=== PATIENT | female | born 1955 | race Caucasian/White ===

== ENCOUNTER 2017-10-31 15:16 | Emergency (ER) | payer OTHER ==
[2017-10-31 15:31] VITALS: BMI 26.1
[2017-10-31 16:13] LABS: BASO # 0.1 K/uL (0.0-0.2); EOS # 0.2 K/uL (0.0-0.7); EOS % 2.5 % (0.0-4.0); LYMPH # 2.5 K/uL (1.0-4.3); LYMPH % 34.5 % (20.0-40.0); MEAN CELL VOLUME 81.8 fL (81.0-99.0); MEAN CORPUSCULAR HEMOGLOBIN 28.3 pg (27.0-31.0); MEAN CORPUSCULAR HGB CONC 34.6 g/dL (33.0-37.0); MEAN PLATELET VOLUME 7.1 fL (7.2-11.7); MONO # 0.4 K/uL (0.0-0.8); MONO % 5.9 % (0.0-10.0); NEUT % 56.1 % (50.0-75.0); NRBC % 0.1 % (0.0-2.0); RBC 4.6 Mil/uL (3.80-5.20); RED CELL DISTRIBUTION WIDTH 15.2 % (11.5-14.5); WHITE BLOOD COUNT 7.1 K/uL (4.8-10.8)
[2017-10-31 16:24] LABS: ALB/GLOB RATIO 1.2 (1.0-2.1); ALBUMIN 4.4 g/dL (3.5-5.0); ALT/SGPT 21 U/L (9-52); AST/SGOT 18 U/L (14-36); BLOOD UREA NITROGEN 10 mg/dL (7-17); CALCIUM 9.3 mg/dl (8.6-10.4); GFR NON-AFRICAN AMERICAN > 60
--- NOTE | 2017-10-31 17:10 | C.PDOC ---
History Of Present Illness <Allison Gray Eligio - Last Filed: 10/31/17 18:33> <Fidelia Locke - Last Filed: 10/31/17 22:34> 62 y/o female brought to ER by BLS for evaluation of bizarre behavior. Patient was found by a tool crib clerk who came to the home. According to tool crib clerk, the patient was incoherent and acting strange. Denies having suicidal ideation, homicidal ideation, and active physical complaints. (Allison Gray) History Per: Patient History/Exam Limitations: no limitations Onset/Duration Of Symptoms: Days Current Symptoms Are (Timing): Still Present Severity: Moderate <MarinaAllison Eligio - Last Filed: 10/31/17 18:33> <Fidelia Locke - Last Filed: 10/31/17 22:34> Time Seen by Provider: 10/31/17 15:30 Chief Complaint (Nursing): Psychiatric Evaluation Past Medical History Reviewed: Historical Data, Nursing Documentation, Vital Signs - Medical History PMH: Schizophrenia Surgical History: No Surg Hx Family History: States: No Known Family Hx - Social History Hx Alcohol Use: No Hx Substance Use: No - Immunization History Hx Tetanus Toxoid Vaccination: No Hx Influenza Vaccination: No <Tiffany Graybeth Eligio - Last Filed: 10/31/17 18:33> Vital Signs: Last Vital Signs Temp 98.2 F 10/31/17 18:58 Pulse 83 10/31/17 18:58 Resp 16 10/31/17 18:58 BP 125/67 10/31/17 18:58 Pulse Ox 97 10/31/17 18:58 Review Of Systems Except As Marked, All Systems Reviewed And Found Negative. Constitutional: Negative for: Fever, Chills Psych: Positive for: Other (bizarre behavior) <MarinaAllison A - Last Filed: 10/31/17 18:33> Physical Exam - Physical Exam Appears: Non-toxic, No Acute Distress, Other (patient speaking,not making much sense) Skin: Normal Color, Warm, Dry Head: Atraumatic, Normacephalic Eye(s): bilateral: Normal Inspection Nose: Normal Oral Mucosa: Moist Neck: Supple Chest: Symmetrical Cardiovascular: Rhythm Regular Respiratory: Normal Breath Sounds, No Rales, No Rhonchi, No Wheezing Neurological/Psych: Oriented x3, Other (talking, not making much sense) <MarinaAllison A - Last Filed: 10/31/17 18:33> ED Course And Treatment - Laboratory Results Result Diagrams: 10/31/17 16:07 10/31/17 16:07 Lab Interpretation: No Acute Changes O2 Sat by Pulse Oximetry: 96 (RA) Pulse Ox Interpretation: Normal Progress Note: Case discussed and patient evaluated by warehouse assembly worker. Patient in no distress. Patient to be screened by [facility]. Cleared for Crisis Exaluation Reassessment Condition: Unchanged <Allison Gray - Last Filed: 10/31/17 18:33> - Laboratory Results Result Diagrams: 10/31/17 16:07 10/31/17 16:07 Progress Note: Patient is medically cleared for psychiatric admission/ psychiatric transfer. 9:30 [facility] screener requesting repeat UA. 10:30 Patient was seen by [facility] screener and cleared for discharge. [facility]CT will evaluate patient tomorrow. Reevaluation Time: 22:27 Reassessment Condition: Unchanged <Fidelia Locke - Last Filed: 10/31/17 22:34> Medical Decision Making: Plan: --Labs --UA (Lila Grayth Eligio) Disposition - Disposition Disposition Time: 19:00 - POA Present On Arrival: None <Allison Gray - Last Filed: 10/31/17 18:33> Counseled Patient/Family Regarding: Studies Performed, Diagnosis, Need For Followup, Rx Given - Disposition Disposition Time: 22:31 <Fidelia Locke - Last Filed: 10/31/17 22:34> - Disposition Disposition: HOME/ ROUTINE Condition: STABLE Additional Instructions: Follow up with [facility] and [facility] tomorrow. Prescriptions: Nitrofurantoin Macrocrystals [Macrobid] 1 cap PO BID #14 cap Instructions: Schizophrenia, Urinary Tract Infections in Adults Forms: [employer] (Japanese) - Clinical Impression Clinical Impression: Schizophrenia, UTI (urinary tract infection) - PA / OIL FIRE SPECIALIST / Resident Statement MD/DO has reviewed & agrees with the documentation as recorded. - Scribe Statement The provider has reviewed the documentation as recorded by the Scribe <Allison Gray - Last Filed: 10/31/17 18:33> <Fidelia Locke - Last Filed: 10/31/17 22:34> - Scribe Statement Eugenio Barone Provider Attestation All medical record entries made by the Scribe were at my direction and personally dictated by me. I have reviewed the chart and agree that the record accurately reflects my personal performance of the history, physical exam, medical decision making, and the department course for this patient. I have also personally directed, reviewed, and agree with the discharge instructions and disposition. (Allison Gray) Physician Patient Turnover Patient Signed Over To: Fidelia Locke Handoff Comments: pending Psych Sreening <Allison Gray - Last Filed: 10/31/17 18:33>
[2017-10-31 17:36] LABS: SQUAMOUS EPITHIAL < 1 /hpf (0-5); URINE BACTERIA MOD (<OCC); URINE BILIRUBIN NEGATIVE (NEGATIVE); URINE BLOOD 1+ (NEGATIVE); URINE CLARITY Hazy (Clear); URINE COLOR Yellow (YELLOW); URINE GLUCOSE (UA) NORMAL (Normal); URINE LEUKOCYTE ESTERASE 3+ Leu/uL (Negative); URINE PROTEIN NEGATIVE (NEGATIVE); URINE UROBILINOGEN NORMAL mg/dL (0.2-1.0)
[2017-10-31 17:52] LABS: BARBITURATES, UR NEGATIVE (NEGATIVE); BENZODIAZEPINES, UR NEGATIVE (NEGATIVE); OPIATES, UR NEGATIVE (NEGATIVE); PHENCYCLIDINE, UR NEGATIVE (NEGATIVE)
[2017-10-31 18:58] VITALS: TEMP 98.2
[2017-10-31 23:01] VITALS: BP 135/75; PULSE 78; RESP 14; O2SAT 100
== END 2017-10-31 23:00 | disposition home or self-care (01) ==
LOC: C.ER 15:16
DX: F20.9 Schizophrenia, unspecified (principal); N39.0 Urinary tract infection, site not specified

== ENCOUNTER 2017-11-02 14:03 | Inpatient (IN) | payer OTHER ==
[2017-11-02 14:04] VITALS: BMI 26.1
--- NOTE | 2017-11-02 14:39 | RAD ---
HISTORY: r/o infiltrate COMPARISON: Chest x-ray performed 07/12/15 TECHNIQUE: Chest, one view. FINDINGS: Examination limited by habitus and hypoinflation. LUNGS: Mild pulmonary venous congestion. Linear atelectasis, left mid lung zone. Please note that chest x-ray has limited sensitivity for the detection of pulmonary masses. PLEURA: No significant pleural effusion identified. No definite pneumothorax . CARDIOVASCULAR: Cardiomegaly. OSSEOUS STRUCTURES: Degenerative changes. VISUALIZED UPPER ABDOMEN: Elevation of the right hemidiaphragm. OTHER FINDINGS: None. IMPRESSION: Mild pulmonary venous congestion. Linear atelectasis, left mid lung zone. Cardiomegaly.
[2017-11-02 14:57] LABS: BASO % 0.6 % (0.0-2.0); EOS # 0.1 K/uL (0.0-0.7); HEMOGLOBIN 13.1 g/dL (11.0-16.0); LYMPH # 1.8 K/uL (1.0-4.3); LYMPH % 33.2 % (20.0-40.0); MEAN CELL VOLUME 81.6 fL (81.0-99.0); MEAN CORPUSCULAR HEMOGLOBIN 27.8 pg (27.0-31.0); MEAN CORPUSCULAR HGB CONC 34.1 g/dL (33.0-37.0); MEAN PLATELET VOLUME 7.2 fL (7.2-11.7); MONO # 0.4 K/uL (0.0-0.8); MONO % 6.9 % (0.0-10.0); NEUT # 3.2 K/uL (1.8-7.0); NEUT % 58.3 % (50.0-75.0); NRBC % 0.1 % (0.0-2.0); RBC 4.71 Mil/uL (3.80-5.20); RED CELL DISTRIBUTION WIDTH 15.2 % (11.5-14.5); WHITE BLOOD COUNT 5.6 K/uL (4.8-10.8)
[2017-11-02 15:30] LABS: ALB/GLOB RATIO 1.1 (1.0-2.1); ALBUMIN 4.4 g/dL (3.5-5.0); ALT/SGPT 23 U/L (9-52); AST/SGOT 28 U/L (14-36); BLOOD UREA NITROGEN 11 mg/dL (7-17); CALCIUM 9.5 mg/dl (8.6-10.4); GFR NON-AFRICAN AMERICAN > 60
[2017-11-02 16:18] LABS: SQUAMOUS EPITHIAL < 1 /hpf (0-5); URINE BACTERIA FEW (<OCC); URINE BILIRUBIN NEGATIVE (NEGATIVE); URINE BLOOD 1+ (NEGATIVE); URINE CLARITY Clear (Clear); URINE COLOR Yellow (YELLOW); URINE GLUCOSE (UA) NORMAL (Normal); URINE LEUKOCYTE ESTERASE 2+ Leu/uL (Negative); URINE PROTEIN NEGATIVE (NEGATIVE); URINE UROBILINOGEN NORMAL mg/dL (0.2-1.0)
[2017-11-02 16:43] LABS: BARBITURATES, UR NEGATIVE (NEGATIVE); BENZODIAZEPINES, UR NEGATIVE (NEGATIVE); OPIATES, UR NEGATIVE (NEGATIVE); PHENCYCLIDINE, UR NEGATIVE (NEGATIVE)
[2017-11-02] MEDS ORDERED: cefTRIAXone IV 1 gm in Dextros 50 ML IVPB ONE (17:19)
[2017-11-02] MEDS ORDERED: cefTRIAXone 1 gm 1 GM/100 ML BAG IVPB ONE (17:46)
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
[2017-11-02] MEDS ORDERED: Magnesium Sulfate 1 gm in D5W 1 GM/100 ML BAG IVPB ONE ×2 (20:21→20:50)
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
[2017-11-02] MEDS ORDERED: Dextrose 50% SYRINGE Inj (50 ml) IV PRN (20:40)
[2017-11-02] MEDS ORDERED: Glucagon Recombinant 1 mg Inj IM PRN (20:40)
[2017-11-02] MEDS: (Novolog) Insulin Aspart, Recombinant 100 u/ml 10 ml vial SC SCH (21:00)
[2017-11-02] MEDS: Rosuvastatin Calcium 2.5 mg Tab PO SCH (22:15)
[2017-11-03] MEDS: (Novolog) Insulin Aspart, Recombinant 100 u/ml 10 ml vial SC SCH ×4 (08:18→21:31)
[2017-11-03] MEDS: Divalproex 500 mg ER Tab PO SCH ×2 (10:46→19:10)
[2017-11-03] MEDS: Saccharomyces Boulardi 250 mg Cap PO SCH ×2 (10:47→17:12)
[2017-11-03 12:36] LABS: BASO % 0.6 % (0.0-2.0); EOS # 0.1 K/uL (0.0-0.7); EOS % 2.4 % (0.0-4.0); HEMOGLOBIN 12.4 g/dL (11.0-16.0); LYMPH % 46.2 % (20.0-40.0); MEAN CORPUSCULAR HGB CONC 34.1 g/dL (33.0-37.0); MEAN PLATELET VOLUME 7.5 fL (7.2-11.7); MONO # 0.3 K/uL (0.0-0.8); MONO % 6.8 % (0.0-10.0); NEUT # 1.9 K/uL (1.8-7.0); NRBC % 0.1 % (0.0-2.0); RBC 4.43 Mil/uL (3.80-5.20); RED CELL DISTRIBUTION WIDTH 15.2 % (11.5-14.5); WHITE BLOOD COUNT 4.4 K/uL (4.8-10.8)
[2017-11-03 12:58] LABS: ALB/GLOB RATIO 1.1 (1.0-2.1); ALBUMIN 3.9 g/dL (3.5-5.0); ALT/SGPT 18 U/L (9-52); AST/SGOT 14 U/L (14-36); BLOOD UREA NITROGEN 10 mg/dL (7-17); CALCIUM 9.2 mg/dl (8.6-10.4); GFR NON-AFRICAN AMERICAN > 60; HDL CHOLESTEROL 39 mg/dL (30-70)
[2017-11-03 13:01] LABS: LDL CHOLESTEROL 66 mg/dL (0-129)
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
[2017-11-03 14:38] LABS: SQUAMOUS EPITHIAL 4 /hpf (0-5); URINE BACTERIA MOD (<OCC); URINE BILIRUBIN NEGATIVE (NEGATIVE); URINE BLOOD 1+ (NEGATIVE); URINE CLARITY Hazy (Clear); URINE COLOR Yellow (YELLOW); URINE GLUCOSE (UA) NORMAL (Normal); URINE LEUKOCYTE ESTERASE 3+ Leu/uL (Negative); URINE PROTEIN NEGATIVE (NEGATIVE); URINE UROBILINOGEN NORMAL mg/dL (0.2-1.0)
--- NOTE | 2017-11-03 14:57 | CP.PCM.PN ---
<Vesta Carlin - Last Filed: 11/03/17 14:55> Subjective - Date & Time of Evaluation Date of Evaluation: 11/03/17 Time of Evaluation: 08:00 - Subjective Subjective: Medicine progress note for Dr. Jain; Patient seen and examined at bedside this morning. Patient was crying while sitting at her bedside as she was upset that she had to have an IV placed in her arm and get IV antibiotics. She was requesting PO antibiotics. She was also claiming that she needed to speak to Sridhar. Her thoughts were very disorganized. She had no other complaints at that time but complete ROS unobtainable due to patient's condition. Objective - Vital Signs/Intake and Output Vital Signs (last 24 hours): Temp Pulse Resp BP Pulse Ox 98.4 F 66 20 128/77 97 11/03/17 08:00 11/03/17 08:00 11/03/17 08:00 11/03/17 08:00 11/03/17 08:00 - Medications Medications: Current Medications Aspirin (Aspirin Chewable) 81 mg PO DAILY [facility] Last Admin: 11/03/17 10:47 Dose: 81 mg Benztropine Mesylate (Cogentin) 1 mg PO HS [facility] Last Admin: 11/02/17 22:15 Dose: 1 mg Ciprofloxacin (Cipro) 500 mg PO BID SHANI PRN Reason: Protocol Last Admin: 11/03/17 10:47 Dose: 500 mg Dextrose (Dextrose 50% Inj) 0 ml IV STAT PRN; Protocol PRN Reason: Hypoglycemia Protocol Dextrose (Glutose 15) 0 gm PO ONCE PRN; Protocol PRN Reason: Hypoglycemia Protocol Divalproex Sodium (Depakote Er) 500 mg PO DAILY [facility] Last Admin: 11/03/17 10:46 Dose: 500 mg Divalproex Sodium (Depakote Er) 1,000 mg PO DAILY@1900 [facility] Glucagon (Glucagen Diagnostic Kit) 1 mg IM STAT PRN; Protocol PRN Reason: Hypoglycemia Protocol Haloperidol (Haldol) 5 mg PO Q4 PRN PRN Reason: Agitation Haloperidol Lactate (Haldol) 5 mg IM Q4 PRN PRN Reason: Agitation Last Admin: 11/02/17 20:58 Dose: 5 mg Heparin Sodium (Porcine) (Heparin) 5,000 units SC Q8 [facility] Last Admin: 11/03/17 14:07 Dose: 5,000 units Dextrose (Dextrose 5% In Water 1000 Ml) 1,000 mls @ 0 mls/hr IV .Q0M PRN; Protocol; Per Protocol PRN Reason: Hypoglycemia Protocol Insulin Aspart (Novolog) [address] [facility] PRN Reason: Protocol Last Admin: 11/03/17 12:00 Dose: 1 unit Pneumococcal Polyvalent Vaccine (Pneumovax 23 Vaccine) 0.5 ml IM .ONCE ONE Stop: 11/04/17 10:01 Risperidone (Risperdal Tab) 2 mg PO HS [facility] Rosuvastatin Calcium (Crestor) 2.5 mg PO HS [facility] Last Admin: 11/02/17 22:15 Dose: 2.5 mg Saccharomyces Boulardii (Florastor) 250 mg PO BID [facility] Last Admin: 11/03/17 10:47 Dose: 250 mg - Labs Labs: 11/03/17 12:20 11/03/17 12:20 APTT 34 SECONDS (21-34) 11/02/17 21:20 - Constitutional Appears: Non-toxic, No Acute Distress, Unkempt - Head Exam Head Exam: ATRAUMATIC, NORMAL INSPECTION - Eye Exam Eye Exam: EOMI, PERRL Pupil Exam: NORMAL ACCOMODATION - ENT Exam ENT Exam: Mucous Membranes Moist - Respiratory Exam Respiratory Exam: Clear to Ausculation Bilateral, NORMAL BREATHING PATTERN. absent: Respiratory Distress - Cardiovascular Exam Cardiovascular Exam: REGULAR RHYTHM, +S1, +S2 - GI/Abdominal Exam GI & Abdominal Exam: Soft, Normal Bowel Sounds. absent: Distended, Firm, Guarding, Tenderness - Extremities Exam Extremities Exam: Normal Inspection - Back Exam Back Exam: NORMAL INSPECTION - Neurological Exam Neurological Exam: Alert, Awake, CN II-XII Intact, Normal Gait. absent: Oriented x3 Neuro motor strength exam: Left Upper Extremity: 5, Right Upper Extremity: 5, Left Lower Extremity: 5, Right Lower Extremity: 5 - Psychiatric Exam Psychiatric exam: Agitated, Anxious Additional comments: disorganized thoughts and pressure speech, crying on exam - Skin Skin Exam: Normal Color Assessment and Plan - Assessment and Plan (Free Text) Assessment: Suspected decompensation of schizophrenia 2/2 medication noncompliance -1:1 observation given behavioral disturbance -Psychiatry (Dr. Garcia) on board -Depakote 500 mg PO in AM -Depakote 1000 mg PO in PM -Haldol 5 mg PO q4h prn -Haldol 5 mg IM q4h prn -Cogentin 1 mg PO daily HS -Risperdal 1 mg PO daily HS - EKG - no evidence of QT prolongation - UDS negative, Alcohol <10 -f/u am labs Urinary Tract Infection -UA: +LE, nitrates, bacteria, WBC -f/u urine cx - prelim shows gram negative rods -Rocephin 1gm q12 - given one dose, will hold as patient does not want IV treatment -Cipro 500mg PO BID (started 11/03) Hypomagnesemia -Mg 1.6 -Mag Sulfate 1gm/100mL IVPB x1 -continue to monitor labs Hypertension -Controlled -ASA 81 mg PO daily as cardioprotective agent Diabetes Mellitus -Novolog sliding scale ACHS low dose -accuchecks -hypoglycemic protocol -on statin therapy -Started Lisinopril 2.5 mg PO daily for renal protection TIA -occurred in the past -Crestor 2.5 mg PO HS -Trig 155, Chol 138, LDL 66, HDL 39 PPx, Diet, Disposition -DVT: heparin 5000 U sc q8 -Florastor 250 mg PO BID -Dispo: Pending urine microbio for correct antibiotic tx. Determining factor is placement in terms of her psychiatric conditions. Dr. Garcia is to speak with Cora patient's psychiatric nurse. <Maryanne Jain V - Last Filed: 11/03/17 19:12> Objective - Vital Signs/Intake and Output Vital Signs (last 24 hours): Temp Pulse Resp BP Pulse Ox 98.0 F 94 H 20 108/69 96 11/03/17 17:25 11/03/17 17:25 11/03/17 17:25 11/03/17 17:25 11/03/17 17:25 Intake and Output: 11/03/17 11/04/17 18:59 06:59 Intake Total 300 Balance 300 - Medications Medications: Current Medications Aspirin (Aspirin Chewable) 81 mg PO DAILY [facility] Last Admin: 11/03/17 10:47 Dose: 81 mg Benztropine Mesylate (Cogentin) 1 mg PO HS [facility] Last Admin: 11/02/17 22:15 Dose: 1 mg Ciprofloxacin (Cipro) 500 mg PO BID [facility] PRN Reason: Protocol Last Admin: 11/03/17 17:13 Dose: 500 mg Dextrose (Dextrose 50% Inj) 0 ml IV STAT PRN; Protocol PRN Reason: Hypoglycemia Protocol Dextrose (Glutose 15) 0 gm PO ONCE PRN; Protocol PRN Reason: Hypoglycemia Protocol Divalproex Sodium (Depakote Er) 500 mg PO DAILY [facility] Last Admin: 11/03/17 10:46 Dose: 500 mg Divalproex Sodium (Depakote Er) 1,000 mg PO DAILY@1900 [facility] Glucagon (Glucagen Diagnostic Kit) 1 mg IM STAT PRN; Protocol PRN Reason: Hypoglycemia Protocol Haloperidol (Haldol) 5 mg PO Q4 PRN PRN Reason: Agitation Haloperidol Lactate (Haldol) 5 mg IM Q4 PRN PRN Reason: Agitation Last Admin: 11/02/17 20:58 Dose: 5 mg Heparin Sodium (Porcine) (Heparin) 5,000 units SC Q8 [facility] Last Admin: 11/03/17 14:07 Dose: 5,000 units Dextrose (Dextrose 5% In Water 1000 Ml) 1,000 mls @ 0 mls/hr IV .Q0M PRN; Protocol; Per Protocol PRN Reason: Hypoglycemia Protocol Insulin Aspart (Novolog) 0 unit SC ACHS [facility] PRN Reason: Protocol Last Admin: 11/03/17 17:15 Dose: Not Given Lisinopril (Zestril) 2.5 mg PO DAILY [facility] Last Admin: 11/03/17 17:22 Dose: 2.5 mg Pneumococcal Polyvalent Vaccine (Pneumovax 23 Vaccine) 0.5 ml IM .ONCE ONE Stop: 11/04/17 10:01 Risperidone (Risperdal Tab) 2 mg PO HS [facility] Rosuvastatin Calcium (Crestor) 2.5 mg PO HS [facility] Last Admin: 11/02/17 22:15 Dose: 2.5 mg Saccharomyces Boulardii (Florastor) 250 mg PO BID [facility] Last Admin: 11/03/17 17:12 Dose: 250 mg - Labs Labs: 11/03/17 12:20 11/03/17 12:20 APTT 34 SECONDS (21-34) 11/02/17 21:20 Assessment and Plan (1) UTI (urinary tract infection) Status: Acute Attending/Attestation - Attestation I have personally seen and examined this patient.: Yes I have fully participated in the care of the patient.: Yes I have reviewed all pertinent clinical information, including history, physical exam and plan: Yes Notes (Text): Patient seen, examined, and case discussed with medical receptionist biller. Patient seen this morning. Patient upset by having IV line. Patient explained many times that she does not have a needle in her IV line is plastic. These patient is an active delusions noting to stasis etc. etc. is very impulsive bit manic and provided with a one-to-one loosening at bedside. I did do discussed with patient's nurse Vi patient noted to refuse Rocephin this morning to the IV. Given the patient's EKG does not show prolonged QT I've started patient on empiric Cipro 500 by mouth twice a day we are awaiting urine culture. Psychiatry will discuss further with patient's psychiatric nurse phone number provided to the psychiatrist and nurse is available to describe further into patient's psychiatric history. Awaiting urine culture did show clearance of UTI. Please note patient noncompliant to urinary tract infection medication because they were unaware that needed to be on antibiotic treatment. Noted likely will patient will need further psychiatric workup rolling clearance of urinary tract infection as long as IV antibiotic is not needed. Assessment plan 1. Suspected decompensation of schizophrenia 2/2 medication noncompliance -1:1 observation given behavioral disturbance -Psychiatry (Dr. Garcia) on board -Depakote 500 mg PO in AM -Depakote 1000 mg PO in PM -Haldol 5 mg PO q4h prn -Haldol 5 mg IM q4h prn -Cogentin 1 mg PO daily HS -Risperdal 1 mg PO daily HS - EKG - no evidence of QT prolongation - UDS negative, Alcohol <10 -f/u am labs 2. Urinary Tract Infection Patient recently discharged on October 31 did not receive antibiotic for clearance of urinary tract infection. -UA: +LE, nitrates, bacteria, WBC -f/u urine cx - prelim shows gram negative rods -Rocephin 1gm q12 - given one dose, will hold as patient does not want IV treatment and is trying to remove the Hep-Lock. -Cipro 500mg PO BID (started 11/03) 3. Hypomagnesemia -Mg 1.6 -Mag Sulfate 1gm/100mL IVPB x1 -continue to monitor labs 4. Hypertension -Controlled -ASA 81 mg PO daily as cardioprotective agent Patient started on low-dose with cerebral 2.5 mg once a day given history of diabetes in addition to hypertension. 5. Diabetes Mellitus -Novolog sliding scale ACHS low dose -accuchecks -hypoglycemic protocol -on statin therapy -Started Lisinopril 2.5 mg PO daily for renal protection -ASA 81 mg PO daily as cardioprotective agent 6. History of TIA - occurred in the past but 7 years ago - Aspirin 81 mg by mouth once a day - Lisinopril 2.5 mg once a day -Crestor 2.5 mg PO HS -Trig 155, Chol 138, LDL 66, HDL 39 7. PPx, Diet, Disposition -DVT: heparin 5000 U sc q8H -Florastor 250 mg PO BID -One-to-one for behavioral observation. Dispo: Pending urine microbio for correct antibiotic tx. Determining factor is placement in terms of her psychiatric conditions. Dr. Garcia is to speak with Cora, patient's psychiatric nurse. for further information regarding psychiatric history.
[2017-11-03] MEDS ORDERED: Magnesium Sulfate 1 gm in D5W 1 GM/100 ML BAG IVPB SCH (15:15)
[2017-11-03] MEDS: Rosuvastatin Calcium 2.5 mg Tab PO SCH (21:31)
[2017-11-04] MEDS: (Novolog) Insulin Aspart, Recombinant 100 u/ml 10 ml vial SC SCH ×4 (07:56→21:17)
[2017-11-04] MEDS: Saccharomyces Boulardi 250 mg Cap PO SCH ×2 (09:20→17:14)
[2017-11-04] MEDS: Divalproex 500 mg ER Tab PO SCH ×2 (09:21→19:00)
[2017-11-04] MEDS ORDERED: Pneumococcal 23-Valent Vaccine IM ONE (10:00)
--- NOTE | 2017-11-04 13:39 | CP.PCM.PN ---
Addendum entered and electronically signed by Brad Cameron DO 11/04/17 14:18: Spoke with patients psychiatric nurse, Cora at . Patient does not have a guardian. Plan is for [facility] screener to evaluate patient for involuntary admission per Dr. Go. Nursing communication placed. Original Note: <Brad Cameron - Last Filed: 11/04/17 13:39> Subjective - Date & Time of Evaluation Date of Evaluation: 11/04/17 Time of Evaluation: 08:30 - Subjective Subjective: Medicine progress note for Dr. Jain; Patient seen and examined at bedside this morning. 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 She states she does not want IV abx, but does request a bladder injection with antibiotics. She again claims that she needed to speak to Sridhar. Thoughts continue to be very disorganized. She denies any pain or any acute complaints. Complete ROS unobtainable due to patient's condition. Objective - Vital Signs/Intake and Output Vital Signs (last 24 hours): Temp Pulse Resp BP Pulse Ox 97.6 F 113 H 20 125/76 97 11/04/17 08:00 11/04/17 08:00 11/04/17 08:00 11/04/17 08:00 11/04/17 08:00 Intake and Output: 11/04/17 11/04/17 06:59 18:59 Intake Total 250 Balance 250 - Medications Medications: Current Medications Aspirin (Aspirin Chewable) 81 mg PO DAILY [facility] Last Admin: 11/04/17 09:20 Dose: 81 mg Benztropine Mesylate (Cogentin) 1 mg PO HS [facility] Last Admin: 11/03/17 21:31 Dose: 1 mg Ciprofloxacin (Cipro) 500 mg PO BID [facility] PRN Reason: Protocol Last Admin: 11/04/17 09:20 Dose: 500 mg Dextrose (Dextrose 50% Inj) 0 ml IV STAT PRN; Protocol PRN Reason: Hypoglycemia Protocol Dextrose (Glutose 15) 0 gm PO ONCE PRN; Protocol PRN Reason: Hypoglycemia Protocol Divalproex Sodium (Depakote Er) 500 mg PO DAILY [facility] Last Admin: 11/04/17 09:21 Dose: 500 mg Divalproex Sodium (Depakote Er) 1,000 mg PO DAILY@1900 [facility] Last Admin: 11/03/17 19:10 Dose: 1,000 mg Glucagon (Glucagen Diagnostic Kit) 1 mg IM STAT PRN; Protocol PRN Reason: Hypoglycemia Protocol Haloperidol (Haldol) 5 mg PO Q4 PRN PRN Reason: Agitation Haloperidol Lactate (Haldol) 5 mg IM Q4 PRN PRN Reason: Agitation Last Admin: 11/02/17 20:58 Dose: 5 mg Heparin Sodium (Porcine) (Heparin) 5,000 units SC Q8 [facility] Last Admin: 11/04/17 05:14 Dose: 5,000 units Dextrose (Dextrose 5% In Water 1000 Ml) 1,000 mls @ 0 mls/hr IV .Q0M PRN; Protocol; Per Protocol PRN Reason: Hypoglycemia Protocol Insulin Aspart (Novolog) 0 unit SC ACHS [facility] PRN Reason: Protocol Last Admin: 11/04/17 11:52 Dose: Not Given Lisinopril (Zestril) 2.5 mg PO DAILY [facility] Last Admin: 11/04/17 09:20 Dose: 2.5 mg Risperidone (Risperdal Tab) 2 mg PO HS [facility] Last Admin: 11/03/17 21:31 Dose: 2 mg Rosuvastatin Calcium (Crestor) 2.5 mg PO HS [facility] Last Admin: 11/03/17 21:31 Dose: 2.5 mg Saccharomyces Boulardii (Florastor) 250 mg PO BID [facility] Last Admin: 11/04/17 09:20 Dose: 250 mg - Labs Labs: 11/03/17 12:20 11/03/17 12:20 APTT 34 SECONDS (21-34) 11/02/17 21:20 - Additional Findings Additional findings: - Constitutional Appears: Non-toxic, No Acute Distress, Unkempt - Head Exam Head Exam: ATRAUMATIC, NORMAL INSPECTION - Eye Exam Eye Exam: EOMI, PERRL Pupil Exam: NORMAL ACCOMODATION - ENT Exam ENT Exam: Mucous Membranes Moist - Respiratory Exam Respiratory Exam: Clear to Ausculation Bilateral, NORMAL BREATHING PATTERN. absent: Respiratory Distress - Cardiovascular Exam Cardiovascular Exam: REGULAR RHYTHM, +S1, +S2 - GI/Abdominal Exam GI & Abdominal Exam: Soft, Normal Bowel Sounds. absent: Distended, Firm, Guarding, Tenderness note: no suprapubic tenderness - Extremities Exam Extremities Exam: Normal Inspection - Back Exam Back Exam: NORMAL INSPECTION - Neurological Exam Neurological Exam: Alert, Awake, CN II-XII Intact, Normal Gait. absent: Oriented x3 Neuro motor strength exam: Left Upper Extremity: 5, Right Upper Extremity: 5, Left Lower Extremity: 5, Right Lower Extremity: 5 - Psychiatric Exam Psychiatric exam: Agitated, Anxious Additional comments: disorganized thoughts and pressure speech - Skin Skin Exam: Normal Color Assessment and Plan - Assessment and Plan (Free Text) Assessment: Suspected decompensation of schizophrenia 2/2 medication noncompliance 11/04: patient is medically stable for transfer to psychiatry. -1:1 observation given behavioral disturbance -Psychiatry (Dr. Garcia) on board -Depakote 500 mg PO in AM -Depakote 1000 mg PO in PM -Haldol 5 mg PO q4h prn -Haldol 5 mg IM q4h prn -Cogentin 1 mg PO daily HS -Risperdal 1 mg PO daily HS - EKG - no evidence of QT prolongation - UDS negative, Alcohol <10 Urinary Tract Infection 11/04: patient is medically stable for transfer to psychiatry. repeat UC is negative BC negative x24hrs Rocephin IV stopped Continue Cipro 500mg PO BID through 11/08. -UA: +LE, nitrates, bacteria, WBC -f/u urine cx - prelim shows gram negative rods -Rocephin 1gm q12 - given one dose, will hold as patient does not want IV treatment -Cipro 500mg PO BID (started 11/03) Hypomagnesemia -Mg 1.6 -Mag Sulfate 1gm/100mL IVPB x1 -continue to monitor labs Hypertension -Controlled -ASA 81 mg PO daily as cardioprotective agent Diabetes Mellitus -Novolog sliding scale ACHS low dose -accuchecks -hypoglycemic protocol -on statin therapy -Started Lisinopril 2.5 mg PO daily for renal protection TIA -occurred in the past -Crestor 2.5 mg PO HS -Trig 155, Chol 138, LDL 66, HDL 39 PPx, Diet, Disposition -DVT: heparin 5000 U sc q8 -Florastor 250 mg PO BID -Dispo: Pending urine microbio for correct antibiotic tx. Determining factor is placement in terms of her psychiatric conditions. Dr. Garcia is to speak with Cora patient's psychiatric nurse. Case discussed with Dr. Jain. <Maryanne Jain V - Last Filed: 11/04/17 14:55> Objective - Vital Signs/Intake and Output Vital Signs (last 24 hours): Temp Pulse Resp BP Pulse Ox 97.6 F 113 H 20 125/76 97 11/04/17 08:00 11/04/17 08:00 11/04/17 08:00 11/04/17 08:00 11/04/17 08:00 Intake and Output: 11/04/17 11/04/17 06:59 18:59 Intake Total 250 300 Balance 250 300 - Medications Medications: Current Medications Aspirin (Aspirin Chewable) 81 mg PO DAILY [facility] Last Admin: 11/04/17 09:20 Dose: 81 mg Benztropine Mesylate (Cogentin) 1 mg PO HS [facility] Last Admin: 11/03/17 21:31 Dose: 1 mg Ciprofloxacin (Cipro) 500 mg PO BID [facility] PRN Reason: Protocol Last Admin: 11/04/17 09:20 Dose: 500 mg Dextrose (Dextrose 50% Inj) 0 ml IV STAT PRN; Protocol PRN Reason: Hypoglycemia Protocol Dextrose (Glutose 15) 0 gm PO ONCE PRN; Protocol PRN Reason: Hypoglycemia Protocol Divalproex Sodium (Depakote Er) 500 mg PO DAILY [facility] Last Admin: 11/04/17 09:21 Dose: 500 mg Divalproex Sodium (Depakote Er) 1,000 mg PO DAILY@1900 [facility] Last Admin: 11/03/17 19:10 Dose: 1,000 mg Glucagon (Glucagen Diagnostic Kit) 1 mg IM STAT PRN; Protocol PRN Reason: Hypoglycemia Protocol Haloperidol (Haldol) 5 mg PO Q4 PRN PRN Reason: Agitation Haloperidol Lactate (Haldol) 5 mg IM Q4 PRN PRN Reason: Agitation Last Admin: 11/02/17 20:58 Dose: 5 mg Heparin Sodium (Porcine) (Heparin) 5,000 units SC Q8 [facility] Last Admin: 11/04/17 13:45 Dose: Not Given Dextrose (Dextrose 5% In Water 1000 Ml) 1,000 mls @ 0 mls/hr IV .Q0M PRN; Protocol; Per Protocol PRN Reason: Hypoglycemia Protocol Insulin Aspart (Novolog) 0 unit SC ACHS [facility] PRN Reason: Protocol Last Admin: 11/04/17 11:52 Dose: Not Given Lisinopril (Zestril) 2.5 mg PO DAILY [facility] Last Admin: 11/04/17 09:20 Dose: 2.5 mg Risperidone (Risperdal Tab) 2 mg PO HS [facility] Last Admin: 11/03/17 21:31 Dose: 2 mg Rosuvastatin Calcium (Crestor) 2.5 mg PO HS [facility] Last Admin: 11/03/17 21:31 Dose: 2.5 mg Saccharomyces Boulardii (Florastor) 250 mg PO BID [facility] Last Admin: 11/04/17 09:20 Dose: 250 mg - Labs Labs: 11/03/17 12:20 11/03/17 12:20 APTT 34 SECONDS (21-34) 11/02/17 21:20 Assessment and Plan (1) UTI (urinary tract infection) Status: Acute Attending/Attestation - Attestation I have personally seen and examined this patient.: Yes I have fully participated in the care of the patient.: Yes I have reviewed all pertinent clinical information, including history, physical exam and plan: Yes Notes (Text): Patient seen this morning with medical typist. 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 Patient appears manic, disorganized, and still requires the one-to-one at bedside. Patient still reports that she does not want the IV Hep-Lock. Per nursing she has refused her medications. Patient's follow-up urine culture shows is cleared and it is sensitive to many options. We will continue ciprofloxacin 500 mg by mouth twice a day for 5 days to clear urinary tract infection. Blood cultures remain negative. Patient is afebrile and no white count. From medicine perspective patient is stable for discharge however unclear given patient's decompensation from her multiple psychiatric conditions where she will go. Resident has spoken with patient's psychiatric nurse Cora given the patient does not have a guardian, patient will need to be screened by [facility] for involuntary hospitalization admission for psych conditions. Patient is pending [facility] screener. Assessment plan 1. Suspected decompensation of schizophrenia 2/2 medication noncompliance -1:1 observation given behavioral disturbance -Psychiatry (Dr. Garcia) on board -Depakote 500 mg PO in AM -Depakote 1000 mg PO in PM -Haldol 5 mg PO q4h prn -Haldol 5 mg IM q4h prn -Cogentin 1 mg PO daily HS -Risperdal 1 mg PO daily HS - EKG - no evidence of QT prolongation - UDS negative, Alcohol <10 - Pending evaluation for involuntary psych. Patient does not have a guardian. Patient unable to make decisions for herself. Patient pending [facility] screener. 2. Urinary Tract Infection Patient recently discharged on October 31 did not receive antibiotic for clearance of urinary tract infection -UA: +LE, nitrates, bacteria, WBC -Urine culture (11/02/17): E. Coli -Urine culture (11/03/17): no growth -Rocephin 1gm q12 - given one dose, will hold as patient does not want IV treatment and is trying to remove the Hep-Lock. -Cipro 500mg PO BID (started 11/03/17) will continue for 5 days -Afebrile, no elevated white count - Blood cultures (11/02/17); no growth 3. Hypomagnesemia -Mg 1.6 -Mag Sulfate 1gm/100mL IVPB x1 -continue to monitor labs 4. Hypertension -Controlled -ASA 81 mg PO daily as cardioprotective agent - Patient started on low-dose with Lisinopril 2.5 mg once a day given history of diabetes in addition to hypertension. 5. Diabetes Mellitus -Novolog sliding scale ACHS low dose -accuchecks -hypoglycemic protocol -on statin therapy -Started Lisinopril 2.5 mg PO daily for renal protection -ASA 81 mg PO daily as cardioprotective agent 6. History of TIA - occurred in the past but 7 years ago - Aspirin 81 mg by mouth once a day - Lisinopril 2.5 mg once a day -Crestor 2.5 mg PO HS -Trig 155, Chol 138, LDL 66, HDL 39 7. PPx, Diet, Disposition -DVT: heparin 5000 U sc q8H -Florastor 250 mg PO BID -One-to-one for behavioral observation. Phone numbers: * [facility] at phone number [phone] * Cora ([phone]) is her PACT worker * Corin Navarro (phone number: [phone]) patient's sister who lives in [place]. Disposition: Patient is medically stable for discharge. Patient is pending to [facility] screener for involuntary psych unit.
--- NOTE | 2017-11-04 20:38 | PCM.PYCHPN ---
Mental Status Examination - Cognitive Function Orientation: Situation - Mood Mood: Other (irate) - Affect Affect: Blunted - Formal Thought Process Formal Thought Process: Hallucinations, Delusions, Paranoia, Loosening of associations
[2017-11-04] MEDS: Rosuvastatin Calcium 2.5 mg Tab PO SCH (21:14)
[2017-11-05] MEDS: (Novolog) Insulin Aspart, Recombinant 100 u/ml 10 ml vial SC SCH ×4 (07:52→21:28)
[2017-11-05] MEDS: Divalproex 500 mg ER Tab PO SCH ×2 (10:29→19:00)
[2017-11-05] MEDS: Saccharomyces Boulardi 250 mg Cap PO SCH ×2 (10:29→17:13)
[2017-11-05 12:30] VITALS: RESP 20
--- NOTE | 2017-11-05 14:30 | CP.PCM.PN ---
<SidhuDona Y - Last Filed: 11/05/17 14:26> Subjective - Date & Time of Evaluation Date of Evaluation: 11/05/17 Time of Evaluation: 10:45 - Subjective Subjective: PGY-1 Medicine Progress note for Dr. Villa Patient was seen and examined at bedside today in no acute distress. Nurse reports no overnight events. Patient continues to adamantly refuse needles, requesting only po medication. She claims that she spoke to Sridhar and refused to speak to me unless I swore to God that I spoke to Sridhar as well. Thoughts continue to be very disorganized. Unable to obtain reliable ROS due to patient' s psychologic condition. Objective - Vital Signs/Intake and Output Vital Signs (last 24 hours): Temp Pulse Resp BP Pulse Ox 98.1 F 97 H 20 148/78 97 11/05/17 07:12 11/05/17 07:12 11/05/17 07:12 11/05/17 07:12 11/05/17 07:12 Intake and Output: 11/05/17 11/05/17 06:59 18:59 Intake Total 300 Balance 300 - Medications Medications: Current Medications Aspirin (Aspirin Chewable) 81 mg PO DAILY [facility] Last Admin: 11/05/17 10:29 Dose: 81 mg Benztropine Mesylate (Cogentin) 1 mg PO HS [facility] Last Admin: 11/04/17 21:14 Dose: 1 mg Ciprofloxacin (Cipro) 500 mg PO BID [facility] PRN Reason: Protocol Stop: 11/08/17 10:00 Last Admin: 11/05/17 10:29 Dose: 500 mg Dextrose (Dextrose 50% Inj) 0 ml IV STAT PRN; Protocol PRN Reason: Hypoglycemia Protocol Dextrose (Glutose 15) 0 gm PO ONCE PRN; Protocol PRN Reason: Hypoglycemia Protocol Divalproex Sodium (Depakote Er) 500 mg PO DAILY [facility] Last Admin: 11/05/17 10:29 Dose: 500 mg Divalproex Sodium (Depakote Er) 1,000 mg PO DAILY@1900 [facility] Last Admin: 11/04/17 19:00 Dose: 1,000 mg Glucagon (Glucagen Diagnostic Kit) 1 mg IM STAT PRN; Protocol PRN Reason: Hypoglycemia Protocol Haloperidol (Haldol) 5 mg PO Q4 PRN PRN Reason: Agitation Haloperidol Lactate (Haldol) 5 mg IM Q4 PRN PRN Reason: Agitation Last Admin: 11/02/17 20:58 Dose: 5 mg Heparin Sodium (Porcine) (Heparin) 5,000 units SC Q8 [facility] Last Admin: 11/05/17 14:01 Dose: Not Given Dextrose (Dextrose 5% In Water 1000 Ml) 1,000 mls @ 0 mls/hr IV .Q0M PRN; Protocol; Per Protocol PRN Reason: Hypoglycemia Protocol Insulin Aspart (Novolog) 0 unit SC ACHS [facility] PRN Reason: Protocol Last Admin: 11/05/17 11:41 Dose: Not Given Lisinopril (Zestril) 2.5 mg PO DAILY [facility] Last Admin: 11/05/17 10:29 Dose: 2.5 mg Risperidone (Risperdal Tab) 2 mg PO HS [facility] Last Admin: 11/04/17 21:14 Dose: 2 mg Rosuvastatin Calcium (Crestor) 2.5 mg PO HS [facility] Last Admin: 11/04/17 21:14 Dose: 2.5 mg Saccharomyces Boulardii (Florastor) 250 mg PO BID [facility] Last Admin: 11/05/17 10:29 Dose: 250 mg - Labs Labs: 11/03/17 12:20 11/03/17 12:20 APTT 34 SECONDS (21-34) 11/02/17 21:20 - Constitutional Appears: Non-toxic, No Acute Distress - Head Exam Head Exam: ATRAUMATIC, NORMOCEPHALIC - Eye Exam Eye Exam: EOMI, Normal appearance - ENT Exam ENT Exam: Mucous Membranes Moist, Normal Exam - Respiratory Exam Respiratory Exam: Clear to Ausculation Bilateral, NORMAL BREATHING PATTERN. absent: Decreased Breath Sounds, Rhonchi, Wheezes - Cardiovascular Exam Cardiovascular Exam: REGULAR RHYTHM, +S1, +S2. absent: Murmur - GI/Abdominal Exam GI & Abdominal Exam: Soft, Normal Bowel Sounds. absent: Firm, Guarding, Tenderness, Rebound - Extremities Exam Extremities Exam: Full ROM, Normal Capillary Refill - Neurological Exam Neurological Exam: Alert, Awake. absent: Oriented x3 - Psychiatric Exam Additional comments: disorganized thoughts and pressured speech - Skin Skin Exam: Dry, Intact, Normal Color Assessment and Plan - Assessment and Plan (Free Text) Assessment: 62F PMH schizophrenia, DM, TIA, HTN admitted for UTI. Plan: 1) Suspected decompensation of schizophrenia 2/2 medication noncompliance 11/04: patient is medically stable for transfer to psychiatry. -1:1 observation given behavioral disturbance -Psychiatry (Dr. Garcia) on board -Depakote 500 mg PO in AM -Depakote 1000 mg PO in PM -Haldol 5 mg PO q4h prn -Haldol 5 mg IM q4h prn -Cogentin 1 mg PO daily HS -Risperdal 1 mg PO daily HS -EKG - no evidence of QT prolongation -UDS negative, Alcohol <10 2) Urinary Tract Infection 11/04: patient is medically stable for transfer to psychiatry. initial UC E coli sensitive to Cipro repeat UC is negative BC negative x48hrs Rocephin IV stopped d/t patient request to d/c IV Tx Continue Cipro 500mg PO BID through 11/08. -UA: +LE, nitrates, bacteria, WBC -Cipro 500mg PO BID (started 11/03) 3) Hypomagnesemia -Mg 1.6 -Mag Sulfate 1gm/100mL IVPB x1 -continue to monitor labs 4) Hypertension -Controlled -ASA 81 mg PO daily as cardioprotective agent 5) Diabetes Mellitus -Novolog sliding scale ACHS low dose -Accucheck ACHS -hypoglycemic protocol -Crestor 2.5mg po HS -Started Lisinopril 2.5 mg PO daily for renal protection 6) Hx of TIA -occurred in the past -Crestor 2.5 mg PO HS -Trig 155, Chol 138, LDL 66, HDL 39 7) PPx, Diet, Disposition -DVT: heparin 5000 U sc q8, SCDs -Florastor 250 mg PO BID -Dispo: Pending placement in psychiatric facility. Patient is medically clear for transfer. [facility] screener to evaluate patient for involuntary admission per Dr. Go. d/w Dr. Allen Sidhu PGY-1 <Alberto Villa - Last Filed: 11/08/17 19:54> Objective - Vital Signs/Intake and Output Vital Signs (last 24 hours): Temp Pulse Resp BP Pulse Ox 98 F 80 20 104/60 97 11/08/17 16:00 11/08/17 16:00 11/08/17 16:00 11/08/17 16:00 11/08/17 16:00 Intake and Output: 11/08/17 11/09/17 18:59 06:59 Intake Total 480 Balance 480 - Labs Labs: 11/03/17 12:20 11/03/17 12:20 APTT 34 SECONDS (21-34) 11/02/17 21:20 Attending/Attestation - Attestation I have personally seen and examined this patient.: Yes I have fully participated in the care of the patient.: Yes I have reviewed all pertinent clinical information, including history, physical exam and plan: Yes Notes (Text): 11/08/17 19:53 This is a late entry Care of this patient was gone over in detail with resident. Alberto Villa D.O.
--- NOTE | 2017-11-05 14:41 | PCM.PYCHPN ---
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 Has very low insight She cannot be discharged like that Please contact [facility] for invol admission screening Medication Change: Yes Medical Record Reviewed: Yes Mental Status Examination - Cognitive Function Orientation: Situation Memory: Impaired Attention: Poor Concentration: Poor Association: Loose Fund of Knowledge: Poor - Mood Mood: Other (irate) - Affect Affect: Blunted - Speech Speech: Slurred, Pressured - Formal Thought Process Formal Thought Process: Hallucinations, Delusions, Paranoia, Loosening of associations - Suicidal Ideation Suicidal Ideation: No - Homicidal Ideation Homicidal Ideation: No Goal/Treatment Plan - Goal/Treatment Plan Need for Continued Stay: Discharge may exacerbated symptoms, Severe functional impairment Progress Toward Problem(s) and Goals/Treatment Plan: Depakote 1500 to resumed Risperdal increased to 3 mg at bedtime Cogentin for side effects As needed Haldol for agitation Support and psychoeducation Continue treating medical issues The patient does not have a capacity to make medical decisions She will be transferred to psychiatry involuntarily ([facility]) if she is screened and accepted
[2017-11-05] MEDS: Rosuvastatin Calcium 2.5 mg Tab PO SCH (21:28)
[2017-11-06] MEDS: (Novolog) Insulin Aspart, Recombinant 100 u/ml 10 ml vial SC SCH ×4 (07:30→21:38)
[2017-11-06] MEDS: Saccharomyces Boulardi 250 mg Cap PO SCH ×2 (11:23→18:26)
[2017-11-06] MEDS: Divalproex 500 mg ER Tab PO SCH ×2 (11:24→18:26)
--- NOTE | 2017-11-06 14:32 | PCM.PYCHPN ---
Psychiatric Progress Note - Psychiatric Progress Note Patient seen today, length of contact: 15 min Patient Chief Complaint: "I'm not psychiatric" Problems Identified/Issues Discussed: Seen, case discussed, chart reviewed Still very disorganized, paranoid and delusional - thinks she is a dr Has very low insight She cannot be discharged like that and per her nurse she is accepted and waiting for transfer to [facility] Psych will sign off Medication Change: No Medical Record Reviewed: Yes Mental Status Examination - Cognitive Function Orientation: Situation Memory: Impaired Attention: Poor Concentration: Poor Association: Loose Fund of Knowledge: Poor - Mood Mood: Other (irate) - Affect Affect: Blunted - Speech Speech: Slurred, Pressured - Formal Thought Process Formal Thought Process: Hallucinations, Delusions, Paranoia, Loosening of associations - Suicidal Ideation Suicidal Ideation: No - Homicidal Ideation Homicidal Ideation: No Goal/Treatment Plan - Goal/Treatment Plan Need for Continued Stay: Discharge may exacerbated symptoms, Severe functional impairment Progress Toward Problem(s) and Goals/Treatment Plan: Depakote 1500 to resumed Risperdal increased to 3 mg at bedtime Cogentin for side effects As needed Haldol for agitation Support and psychoeducation Continue treating medical issues The patient does not have a capacity to make medical decisions She will be transferred to psychiatry involuntarily ([facility])
--- NOTE | 2017-11-06 18:42 | CP.PCM.PN ---
<Dona Sidhu Y - Last Filed: 11/06/17 18:40> Subjective - Date & Time of Evaluation Date of Evaluation: 11/06/17 Time of Evaluation: 09:43 - Subjective Subjective: PGY-1 Medicine Progress note for Dr. Villa Patient was seen and examined sitting up in bed eating breakfast. Nurse reports no overnight events. Patient has no new complaints. She has had multiple BM and no trouble voiding. Denies pain of any kind. Believes that her left her with 4 children to put through college. Patient is still talking with pressured speech and is unable to recall where she is. Due to her psychiatric condition, unable to obtain reliable ROS. Objective - Vital Signs/Intake and Output Vital Signs (last 24 hours): Temp Pulse Resp BP Pulse Ox 98.1 F 87 20 133/76 97 11/06/17 16:31 11/06/17 16:31 11/06/17 16:31 11/06/17 16:31 11/06/17 16:31 - Medications Medications: Current Medications Aspirin (Aspirin Chewable) 81 mg PO DAILY [facility] Last Admin: 11/06/17 11:23 Dose: 81 mg Benztropine Mesylate (Cogentin) 1 mg PO HS [facility] Last Admin: 11/05/17 21:27 Dose: 1 mg Ciprofloxacin (Cipro) 500 mg PO BID [facility] PRN Reason: Protocol Stop: 11/08/17 10:00 Last Admin: 11/06/17 18:26 Dose: 500 mg Dextrose (Dextrose 50% Inj) 0 ml IV STAT PRN; Protocol PRN Reason: Hypoglycemia Protocol Dextrose (Glutose 15) 0 gm PO ONCE PRN; Protocol PRN Reason: Hypoglycemia Protocol Divalproex Sodium (Depakote Er) 500 mg PO DAILY [facility] Last Admin: 11/06/17 11:24 Dose: 500 mg Divalproex Sodium (Depakote Er) 1,000 mg PO DAILY@1900 [facility] Last Admin: 11/06/17 18:26 Dose: 1,000 mg Glucagon (Glucagen Diagnostic Kit) 1 mg IM STAT PRN; Protocol PRN Reason: Hypoglycemia Protocol Haloperidol (Haldol) 5 mg PO Q4 PRN PRN Reason: Agitation Haloperidol Lactate (Haldol) 5 mg IM Q4 PRN PRN Reason: Agitation Last Admin: 11/02/17 20:58 Dose: 5 mg Heparin Sodium (Porcine) (Heparin) 5,000 units SC Q8 [facility] Last Admin: 11/06/17 14:31 Dose: Not Given Dextrose (Dextrose 5% In Water 1000 Ml) 1,000 mls @ 0 mls/hr IV .Q0M PRN; Protocol; Per Protocol PRN Reason: Hypoglycemia Protocol Insulin Aspart (Novolog) 0 unit SC ACHS [facility] PRN Reason: Protocol Last Admin: 11/06/17 11:32 Dose: Not Given Lisinopril (Zestril) 2.5 mg PO DAILY [facility] Last Admin: 11/06/17 11:25 Dose: 2.5 mg Risperidone (Risperdal Tab) 3 mg PO HS [facility] Rosuvastatin Calcium (Crestor) 2.5 mg PO HS [facility] Last Admin: 11/05/17 21:28 Dose: 2.5 mg Saccharomyces Boulardii (Florastor) 250 mg PO BID [facility] Last Admin: 11/06/17 18:26 Dose: 250 mg - Labs Labs: 11/03/17 12:20 11/03/17 12:20 APTT 34 SECONDS (21-34) 11/02/17 21:20 - Constitutional Appears: Non-toxic, No Acute Distress - Head Exam Head Exam: ATRAUMATIC, NORMOCEPHALIC - Eye Exam Eye Exam: EOMI, Normal appearance - ENT Exam ENT Exam: Mucous Membranes Moist - Respiratory Exam Respiratory Exam: Clear to Ausculation Bilateral, NORMAL BREATHING PATTERN. absent: Rales, Rhonchi, Wheezes - Cardiovascular Exam Cardiovascular Exam: REGULAR RHYTHM, +S1, +S2. absent: Murmur - GI/Abdominal Exam GI & Abdominal Exam: Soft, Normal Bowel Sounds. absent: Firm, Guarding, Tenderness - Extremities Exam Extremities Exam: Full ROM, Normal Capillary Refill - Neurological Exam Neurological Exam: Alert, Awake. absent: Oriented x3 - Psychiatric Exam Additional comments: disorganized thoughts and pressured speech - Skin Skin Exam: Dry, Intact, Normal Color Assessment and Plan - Assessment and Plan (Free Text) Assessment: 62F PMH schizophrenia, DM, TIA, HTN admitted for UTI. Plan: 1) Suspected decompensation of schizophrenia 2/2 medication noncompliance 11/04: patient is medically stable for transfer to psychiatry. -1:1 observation given behavioral disturbance -Psychiatry (Dr. Garcia) on board -Depakote 500 mg PO in AM -Depakote 1000 mg PO in PM -Haldol 5 mg PO q4h prn -Haldol 5 mg IM q4h prn -Cogentin 1 mg PO daily HS -Risperdal 1 mg PO daily HS -EKG - no evidence of QT prolongation -UDS negative, Alcohol <10 2) Urinary Tract Infection 11/04: patient is medically stable for transfer to psychiatry. initial UC E coli sensitive to Cipro repeat UC is negative BC negative x48hrs Rocephin IV stopped d/t patient request to d/c IV Tx Continue Cipro 500mg PO BID through 11/08. -UA: +LE, nitrates, bacteria, WBC -Cipro 500mg PO BID (started 11/03) 3) Hypomagnesemia -Mg 1.6 -Mag Sulfate 1gm/100mL IVPB x1 -patient refusing bloodwork, will continue to monitor for physical signs of electrolyte imbalance 4) Hypertension -Controlled -ASA 81 mg PO daily as cardioprotective agent 5) Diabetes Mellitus -Novolog sliding scale ACHS low dose -Accucheck ACHS -hypoglycemic protocol -Crestor 2.5mg po HS -Started Lisinopril 2.5 mg PO daily for renal protection 6) TIA -occurred in the past -Crestor 2.5 mg PO HS -Trig 155, Chol 138, LDL 66, HDL 39 7) PPx, Diet, Disposition -DVT: heparin 5000 U sc q8, SCDs -Florastor 250 mg PO BID -Dispo: Patient has been accepted at [facility] for involuntary admission. Pending bed placement in psychiatric facility. d/w Dr. Allen Sidhu PGY-1 <Alberto Villa - Last Filed: 11/08/17 19:54> Objective - Vital Signs/Intake and Output Vital Signs (last 24 hours): Temp Pulse Resp BP Pulse Ox 98 F 80 20 104/60 97 11/08/17 16:00 11/08/17 16:00 11/08/17 16:00 11/08/17 16:00 11/08/17 16:00 Intake and Output: 11/08/17 11/09/17 18:59 06:59 Intake Total 480 Balance 480 - Labs Labs: 11/03/17 12:20 11/03/17 12:20 APTT 34 SECONDS (21-34) 11/02/17 21:20 Attending/Attestation - Attestation I have personally seen and examined this patient.: Yes I have fully participated in the care of the patient.: Yes I have reviewed all pertinent clinical information, including history, physical exam and plan: Yes Notes (Text): 11/08/17 19:54 This is a late entry Care of this patient was gone over in detail with resident. Alberto Villa D.O.
[2017-11-06] MEDS: Rosuvastatin Calcium 2.5 mg Tab PO SCH (21:41)
[2017-11-07] MEDS: (Novolog) Insulin Aspart, Recombinant 100 u/ml 10 ml vial SC SCH ×4 (08:13→21:27)
[2017-11-07] MEDS: Saccharomyces Boulardi 250 mg Cap PO SCH ×2 (10:52→18:06)
[2017-11-07] MEDS: Divalproex 500 mg ER Tab PO SCH ×2 (10:54→19:30)
--- NOTE | 2017-11-07 12:22 | CP.PCM.PN ---
<SidhuDona Y - Last Filed: 11/07/17 12:19> Subjective - Date & Time of Evaluation Date of Evaluation: 11/07/17 Time of Evaluation: 10:00 - Subjective Subjective: PGY-1 Medicine Progress note for Dr. Villa Patient was seen and examined in bed today in no acute distress. Nurse reports no overnight events. Patient has no new complaints. She has had multiple BM and no trouble voiding. Denies pain of any kind. She states today that she is quite happy in her relationship to God and repeatedly asks for no injections. Due to her psychiatric condition, unable to obtain reliable ROS. Objective - Vital Signs/Intake and Output Vital Signs (last 24 hours): Temp Pulse Resp BP Pulse Ox 98.5 F 95 H 20 111/69 97 11/06/17 23:16 11/06/17 23:16 11/06/17 23:16 11/06/17 23:16 11/06/17 23:16 Intake and Output: 11/07/17 11/07/17 06:59 18:59 Intake Total 500 Output Total 400 Balance 100 - Medications Medications: Current Medications Aspirin (Aspirin Chewable) 81 mg PO DAILY [facility] Last Admin: 11/07/17 10:56 Dose: 81 mg Benztropine Mesylate (Cogentin) 1 mg PO HS [facility] Last Admin: 11/06/17 21:41 Dose: 1 mg Ciprofloxacin (Cipro) 500 mg PO BID [facility] PRN Reason: Protocol Stop: 11/08/17 10:00 Last Admin: 11/07/17 10:52 Dose: 500 mg Dextrose (Dextrose 50% Inj) 0 ml IV STAT PRN; Protocol PRN Reason: Hypoglycemia Protocol Dextrose (Glutose 15) 0 gm PO ONCE PRN; Protocol PRN Reason: Hypoglycemia Protocol Divalproex Sodium (Depakote Er) 500 mg PO DAILY [facility] Last Admin: 11/07/17 10:54 Dose: 500 mg Divalproex Sodium (Depakote Er) 1,000 mg PO DAILY@1900 [facility] Last Admin: 11/06/17 18:26 Dose: 1,000 mg Glucagon (Glucagen Diagnostic Kit) 1 mg IM STAT PRN; Protocol PRN Reason: Hypoglycemia Protocol Haloperidol (Haldol) 5 mg PO Q4 PRN PRN Reason: Agitation Haloperidol Lactate (Haldol) 5 mg IM Q4 PRN PRN Reason: Agitation Last Admin: 11/02/17 20:58 Dose: 5 mg Heparin Sodium (Porcine) (Heparin) 5,000 units SC Q8 [facility] Last Admin: 11/07/17 06:00 Dose: Not Given Dextrose (Dextrose 5% In Water 1000 Ml) 1,000 mls @ 0 mls/hr IV .Q0M PRN; Protocol; Per Protocol PRN Reason: Hypoglycemia Protocol Insulin Aspart (Novolog) 0 unit SC ACHS [facility] PRN Reason: Protocol Last Admin: 11/07/17 08:13 Dose: Not Given Lisinopril (Zestril) 2.5 mg PO DAILY [facility] Last Admin: 11/07/17 10:53 Dose: 2.5 mg Risperidone (Risperdal Tab) 3 mg PO HS [facility] Last Admin: 11/06/17 22:19 Dose: 3 mg Rosuvastatin Calcium (Crestor) 2.5 mg PO HS [facility] Last Admin: 11/06/17 21:41 Dose: 2.5 mg Saccharomyces Boulardii (Florastor) 250 mg PO BID [facility] Last Admin: 11/07/17 10:52 Dose: 250 mg - Labs Labs: 11/03/17 12:20 11/03/17 12:20 APTT 34 SECONDS (21-34) 11/02/17 21:20 - Constitutional Appears: Well, Non-toxic, No Acute Distress - Head Exam Head Exam: ATRAUMATIC, NORMOCEPHALIC - Eye Exam Eye Exam: EOMI, Normal appearance - ENT Exam ENT Exam: Mucous Membranes Moist, Normal Exam - Respiratory Exam Respiratory Exam: Clear to Ausculation Bilateral, NORMAL BREATHING PATTERN. absent: Rales, Rhonchi, Wheezes - Cardiovascular Exam Cardiovascular Exam: REGULAR RHYTHM, +S1, +S2. absent: Murmur - GI/Abdominal Exam GI & Abdominal Exam: Soft, Normal Bowel Sounds. absent: Tenderness - Extremities Exam Extremities Exam: Full ROM, Normal Capillary Refill. absent: Pedal Edema, Tenderness Additional comments: peripheral pulses palpable bilaterally (radial, DP) - Neurological Exam Neurological Exam: Alert, Awake, Normal Gait. absent: Oriented x3 - Psychiatric Exam Additional comments: pressured speech and disorganized thoughts - Skin Skin Exam: Intact, Normal Color, Warm Assessment and Plan - Assessment and Plan (Free Text) Assessment: 62F PMH schizophrenia, DM, TIA, HTN admitted for UTI. Plan: 1) Suspected decompensation of schizophrenia 2/2 medication noncompliance 11/04: patient is medically stable for transfer to psychiatry. -1:1 observation given behavioral disturbance -Psychiatry (Dr. Garcia) on board -Depakote 500 mg PO in AM -Depakote 1000 mg PO in PM -Haldol 5 mg PO q4h prn -Haldol 5 mg IM q4h prn -Cogentin 1 mg PO daily HS -Risperdal 1 mg PO daily HS -EKG - no evidence of QT prolongation -UDS negative, Alcohol <10 2) Urinary Tract Infection 11/04: patient is medically stable for transfer to psychiatry. initial UC E coli sensitive to Cipro repeat UC is negative BC negative x4 days Rocephin IV stopped d/t patient request to d/c IV Tx Continue Cipro 500mg PO BID through 11/08. -UA: +LE, nitrates, bacteria, WBC -Cipro 500mg PO BID (started 11/03) 3) Hypomagnesemia -Mg 1.6 -Mag Sulfate 1gm/100mL IVPB x1 -patient refusing bloodwork, will continue to monitor for physical signs of electrolyte imbalance 4) Hypertension -Controlled -ASA 81 mg PO daily as cardioprotective agent 5) Diabetes Mellitus -Novolog sliding scale ACHS low dose -Accucheck ACHS -hypoglycemic protocol -Crestor 2.5mg po HS -Lisinopril 2.5 mg PO daily for renal protection 6) TIA -occurred in the past -Crestor 2.5 mg PO HS -Trig 155, Chol 138, LDL 66, HDL 39 7) PPx, Diet, Disposition -DVT: heparin 5000 U sc q8, SCDs -Florastor 250 mg PO BID -Dispo: Patient has been accepted at [facility] [place] for involuntary admission. Pending bed placement in psychiatric facility. d/w Dr. Allen Sidhu PGY-1 <Alberto Villa - Last Filed: 11/08/17 19:55> Objective - Vital Signs/Intake and Output Vital Signs (last 24 hours): Temp Pulse Resp BP Pulse Ox 98 F 80 20 104/60 97 11/08/17 16:00 11/08/17 16:00 11/08/17 16:00 11/08/17 16:00 11/08/17 16:00 Intake and Output: 09/20/18 09/21/18 18:59 06:59 Intake Total 480 Balance 480 - Labs Labs: 11/03/17 12:20 11/03/17 12:20 APTT 34 SECONDS (21-34) 11/02/17 21:20 Attending/Attestation - Attestation I have personally seen and examined this patient.: Yes I have fully participated in the care of the patient.: Yes I have reviewed all pertinent clinical information, including history, physical exam and plan: Yes Notes (Text): 11/08/17 19:55 This is a late entry Care of this patient was gone over in detail with resident. Alberto Villa D.O.
--- NOTE | 2017-11-07 14:22 | CARD ---
APPROVED REPORT Date of service: 11/02/2017 EKG Measurement Heart [id number] <Conclusion> Normal sinus rhythm with sinus arrhythmia Possible Left atrial enlargement Borderline ECG
[2017-11-07] MEDS: Rosuvastatin Calcium 2.5 mg Tab PO SCH (23:29)
--- NOTE | 2017-11-08 07:01 | CP.PCM.PN ---
Objective - Vital Signs/Intake and Output Vital Signs (last 24 hours): Temp Pulse Resp BP Pulse Ox 98.4 F 85 20 129/68 98 11/08/17 00:12 11/08/17 00:12 11/08/17 00:12 11/08/17 00:12 11/08/17 00:12 Intake and Output: 11/08/17 11/08/17 06:59 18:59 Intake Total 300 Output Total 500 Balance -200 - Medications Medications: Current Medications Aspirin (Aspirin Chewable) 81 mg PO DAILY [facility] Last Admin: 11/07/17 10:56 Dose: 81 mg Benztropine Mesylate (Cogentin) 1 mg PO HS [facility] Last Admin: 11/07/17 23:29 Dose: 1 mg Ciprofloxacin (Cipro) 500 mg PO BID [facility] PRN Reason: Protocol Stop: 11/08/17 10:00 Last Admin: 11/07/17 18:06 Dose: 500 mg Dextrose (Dextrose 50% Inj) 0 ml IV STAT PRN; Protocol PRN Reason: Hypoglycemia Protocol Dextrose (Glutose 15) 0 gm PO ONCE PRN; Protocol PRN Reason: Hypoglycemia Protocol Divalproex Sodium (Depakote Er) 500 mg PO DAILY [facility] Last Admin: 11/07/17 10:54 Dose: 500 mg Divalproex Sodium (Depakote Er) 1,000 mg PO DAILY@1900 [facility] Last Admin: 11/07/17 19:30 Dose: 1,000 mg Glucagon (Glucagen Diagnostic Kit) 1 mg IM STAT PRN; Protocol PRN Reason: Hypoglycemia Protocol Haloperidol (Haldol) 5 mg PO Q4 PRN PRN Reason: Agitation Haloperidol Lactate (Haldol) 5 mg IM Q4 PRN PRN Reason: Agitation Last Admin: 11/02/17 20:58 Dose: 5 mg Heparin Sodium (Porcine) (Heparin) 5,000 units SC Q8 [facility] Last Admin: 11/07/17 21:27 Dose: Not Given Dextrose (Dextrose 5% In Water 1000 Ml) 1,000 mls @ 0 mls/hr IV .Q0M PRN; Protocol; Per Protocol PRN Reason: Hypoglycemia Protocol Insulin Aspart (Novolog) 0 unit SC ACHS [facility] PRN Reason: Protocol Last Admin: 11/07/17 21:27 Dose: Not Given Lisinopril (Zestril) 2.5 mg PO DAILY [facility] Last Admin: 11/07/17 10:53 Dose: 2.5 mg Risperidone (Risperdal Tab) 3 mg PO HS [facility] Last Admin: 11/07/17 21:29 Dose: 3 mg Rosuvastatin Calcium (Crestor) 2.5 mg PO HS [facility] Last Admin: 11/07/17 23:29 Dose: 2.5 mg Saccharomyces Boulardii (Florastor) 250 mg PO BID [facility] Last Admin: 11/07/17 18:06 Dose: 250 mg - Labs Labs: 11/03/17 12:20 11/03/17 12:20 APTT 34 SECONDS (21-34) 11/02/17 21:20
[2017-11-08] MEDS: (Novolog) Insulin Aspart, Recombinant 100 u/ml 10 ml vial SC SCH ×3 (08:05→16:58)
[2017-11-08] MEDS: Saccharomyces Boulardi 250 mg Cap PO SCH (09:53)
[2017-11-08] MEDS: Divalproex 500 mg ER Tab PO SCH (09:54)
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
[2017-11-08 16:08] VITALS: BP 104/60; PULSE 80; TEMP 98; O2SAT 97
== END 2017-11-08 17:45 | disposition short-term general hospital (02) | DRG 320 ==
LOC: C.ER 14:03 → C.9E 17:20 → C.3T 22:16
PROVIDERS: ADMIT Family Medicine; ATTEND Family Medicine
DX: N39.0 Urinary tract infection, site not specified (principal); F25.0 Schizoaffective disorder, bipolar type; E11.9 Type 2 diabetes mellitus without complications; I10 Essential (primary) hypertension; E66.01 Morbid (severe) obesity due to excess calories; E83.42 Hypomagnesemia; H05.20 Unspecified exophthalmos; Z91.14 Patient's other noncompliance with medication regimen; Z79.82 Long term (current) use of aspirin; Z79.84 Long term (current) use of oral hypoglycemic drugs; Z79.899 Other long term (current) drug therapy; Z86.73 Personal history of transient ischemic attack (TIA), and cerebral infarction without residual deficits; Z91.19 Patient's noncompliance with other medical treatment and regimen